=== PATIENT | male | born 1990 | race Caucasian/White ===

== ENCOUNTER 2018-10-25 15:28 | Emergency (ER) | payer SELFPAY | END 2018-10-25 15:44 | disposition left against medical advice (07) | LOC: ER 15:28 | DX: F41.9 Anxiety disorder, unspecified (principal); Z53.21 Procedure and treatment not carried out due to patient leaving prior to being seen by health care provider ==

== ENCOUNTER 2019-05-15 23:42 | Emergency (ER) | payer MEDICAID | END 2019-05-16 01:04 | disposition left against medical advice (07) | LOC: ER 23:42 | DX: F41.9 Anxiety disorder, unspecified (principal); Z53.21 Procedure and treatment not carried out due to patient leaving prior to being seen by health care provider ==

== ENCOUNTER 2021-02-05 07:35 | Emergency (ER) | payer MEDICAID, OTHER ==
[~2021-02-05] VITALS: Ht 165.1 cm; Wt 73.0 kg
[2021-02-05] MEDS ORDERED: LORAZEPAM 2MG/ML CPJ IV ONE (07:45)
[2021-02-05] MEDS ORDERED: SODIUM CHLORIDE 0.9% 1,000 ML IV ONE (08:30)
[2021-02-05] MEDS ORDERED: DEXT 5%/0.9% NACL 1,000 ML IV ONE (08:30)
[2021-02-05 09:11] LABS: BASOPHILS % 1.1 % (0.0-2.0); EOSINOPHILS % 0.3 % (0.0-5.0); HEMATOCRIT. 40.3 % (42.0-52.0); HEMOGLOBIN. 14.5 g/dL (14.0-18.0); MEAN CORPUSCULAR VOLUME 86.3 fL (80.0-94.0); MEAN PLATELET VOLUME 8.3 fl (7.4-10.4); MONOCYTES % 7.7 % (2.0-8.0); NEUTROPHILS % 76.9 % (40.0-76.0); PLATELET 239 x1000/uL (130-400); RED BLOOD CELL COUNT 4.67 mill/uL (4.7-6.1); RED CELL DISTRIBUTION WIDTH 14.2 % (11.6-14.6)
[2021-02-05 09:15] LABS: CHLORIDE 107 mEq/L (98-107)
[2021-02-05 11:30] VITALS: BP 131/78
== END 2021-02-05 11:30 | disposition home or self-care (01) ==
LOC: ER 07:42
DX: K70.10 Alcoholic hepatitis without ascites (principal); Y90.9 Presence of alcohol in blood, level not specified; F10.180 Alcohol abuse with alcohol-induced anxiety disorder; E86.0 Dehydration; T40.5X1A Poisoning by cocaine, accidental (unintentional), initial encounter; F14.129 Cocaine abuse with intoxication, unspecified; R07.89 Other chest pain; R03.0 Elevated blood-pressure reading, without diagnosis of hypertension; Y92.89 Other specified places as the place of occurrence of the external cause
CPT/HCPCS: 36415; 71045; 80053; 83735; 83880; 84443; 84484; 85025; 93005; 96361; 96374; 99285; J2060; J7030; J7042; Z7610

== ENCOUNTER 2021-02-07 00:13 | Emergency (ER) | payer MEDICAID, OTHER ==
[~2021-02-07] VITALS: Ht 165.1 cm; Wt 75.0 kg
[2021-02-07 05:09] VITALS: BP 128/93
== END 2021-02-07 05:11 | disposition home or self-care (01) ==
LOC: ER 00:13
DX: T51.0X1A Toxic effect of ethanol, accidental (unintentional), initial encounter (principal); R00.2 Palpitations; F10.10 Alcohol abuse, uncomplicated; Y90.9 Presence of alcohol in blood, level not specified; R03.0 Elevated blood-pressure reading, without diagnosis of hypertension; F41.9 Anxiety disorder, unspecified; Y92.89 Other specified places as the place of occurrence of the external cause
CPT/HCPCS: 93005; 99283

== ENCOUNTER 2022-05-13 07:44 | Emergency (ER) | payer MEDICAID, OTHER ==
[~2022-05-13] VITALS: Ht 165.1 cm; Wt 91.0 kg
[2022-05-13 07:48] VITALS: BP 136/84
[2022-05-13] MEDS ORDERED: ONDANSETRON 4MG ODT PO ONE (08:15)
[2022-05-13] MEDS ORDERED: FAMOTIDINE 20MG TABLET PO ONE (08:15)
[2022-05-13] MEDS ORDERED: MAGNESIUM/ALUMINUM HYDROXIDE/SIMETHICONE 30ML UDC PO ONE (08:15)
[2022-05-13] MEDS ORDERED: MAGNESIUM/ALUMINUM HYDROXIDE/SIMETHICONE 30ML UDC PO NR (08:45)
== END 2022-05-13 09:47 | disposition home or self-care (01) ==
LOC: ER 07:44
DX: R11.2 Nausea with vomiting, unspecified (principal); F41.9 Anxiety disorder, unspecified
CPT/HCPCS: 99284; Q0162

== ENCOUNTER 2022-09-01 20:46 | Emergency (ER) | payer OTHER ==
[~2022-09-01] VITALS: Ht 170.2 cm; Wt 80.6 kg
[2022-09-01 20:51] VITALS: BP 128/55
== END 2022-09-02 00:09 | disposition left against medical advice (07) ==
LOC: ER 20:46
DX: Z53.21 Procedure and treatment not carried out due to patient leaving prior to being seen by health care provider (principal)
CPT/HCPCS: 93005

== ENCOUNTER 2023-01-22 03:29 | Emergency (ER) | payer OTHER ==
[~2023-01-22] VITALS: Ht 165.1 cm; Wt 73.0 kg
[2023-01-22 05:13] LABS: HEMATOCRIT. 37.8 % (42.0-52.0); HEMOGLOBIN. 12.8 g/dL (14.0-18.0); MEAN CORPUSCULAR HEMOGLOBIN 33.8 pg (28.0-32.0); MEAN CORPUSCULAR VOLUME 99.6 fL (80.0-94.0); MEAN PLATELET VOLUME 8.1 fl (7.4-10.4); PLATELET 145 x1000/uL (130-400); RED BLOOD CELL COUNT 3.79 mill/uL (4.7-6.1); RED CELL DISTRIBUTION WIDTH 15.2 % (11.6-14.6)
[2023-01-22 05:20] LABS: CHLORIDE 104 mEq/L (98-107)
[2023-01-22 06:28] LABS: PLATELET ESTIMATE NORMAL
[2023-01-22] MEDS ORDERED: LORAZEPAM 2MG/ML CPJ IV ONE (09:45)
[2023-01-22] MEDS ORDERED: FOLIC ACID 1 MG, THIAMINE HCL 100 MG, MVI, ADULT NO.1 10 ML in DEXTROSE 5% WATER 1,000 ML IV ONE ×4 (09:45)
[2023-01-22 10:57] LABS: CLARITY URINE CLEAR (CLEAR); COLOR URINE ORANGE (YELLOW); KETONES URINE 1+ (NEGATIVE); PH URINE 7.5 (4.5-8.0); PROTEIN URINE TRACE (NEGATIVE)
[2023-01-22 10:58] LABS: LEUKOCYTE ESTERASE URINE NEGATIVE (NEGATIVE); NITRITE URINE POSITIVE (NEGATIVE); OCCULT BLOOD URINE NEGATIVE (NEGATIVE); UROBILINOGEN URINE >8.0 E.U./dL (0.2-1.0)
[2023-01-22 12:00] VITALS: BP 117/66
[2023-01-22] MEDS ORDERED: L10 MT (13:45)
== END 2023-01-22 14:00 | disposition home or self-care (01) ==
LOC: ER 03:29
DX: R42 Dizziness and giddiness (principal); F41.9 Anxiety disorder, unspecified
CPT/HCPCS: 36415; 71045; 80053; 81003; 82962; 85025; 96365; 96366; 96375; 99284; J2060; J3411; J3490; J7070

== ENCOUNTER 2023-02-19 11:15 | Emergency (ER) | payer OTHER ==
[~2023-02-19] VITALS: Ht 165.1 cm; Wt 77.0 kg
[~2023-02-19 11:15] MED LIST: L10 MT
[2023-02-19 11:20] VITALS: O2SAT 98
[2023-02-19] MEDS ORDERED: SODIUM CHLORIDE 0.9% 1,000 ML IV ONE (12:30)
[2023-02-19 12:43] LABS: *AMPHETAMINES SCREEN URINE PRESUMTIVE POSITIVE (NEGATIVE); *BARBITURATES SCREEN URINE NEGATIVE (NEGATIVE); *BENZODIAZEPINES SCREEN URINE PRESUMTIVE POSITIVE (NEGATIVE); *COCAINE SCREEN URINE PRESUMTIVE POSITIVE (NEGATIVE); CANNABINOID URINE SCREEN NEGATIVE (NEGATIVE); METHADONE URINE SCREEN NEGATIVE (NEGATIVE); OPIATES URINE SCREEN NEGATIVE (NEGATIVE); PHENCYCLIDINE URINE SCREEN NEGATIVE (NEGATIVE)
[2023-02-19 13:07] LABS: EOSINOPHILS % 1.4 % (0.0-5.0); HEMOGLOBIN. 11.4 g/dL (14.0-18.0); LYMPHOCYTES % 12.2 % (20.0-50.0); MEAN CORPUSCULAR HEMOGLOBIN 33.9 pg (28.0-32.0); MEAN CORPUSCULAR VOLUME 98.4 fL (80.0-94.0); MEAN PLATELET VOLUME 8.6 fl (7.4-10.4); NEUTROPHILS % 78.4 % (40.0-76.0); PLATELET 111 x1000/uL (130-400); RED BLOOD CELL COUNT 3.36 mill/uL (4.7-6.1); RED CELL DISTRIBUTION WIDTH 14.9 % (11.6-14.6)
[2023-02-19 13:14] LABS: CHLORIDE 107 mEq/L (98-107)
[2023-02-19 13:26] LABS: ETHANOL BLOOD 237 mg/dL (-10)
[2023-02-19 14:30] VITALS: BP 120/73; PULSE 95; RESP 16; TEMP 98.9
== END 2023-02-19 15:00 | disposition home or self-care (01) ==
LOC: ER 11:15
DX: R00.2 Palpitations (principal); E86.0 Dehydration; F41.9 Anxiety disorder, unspecified
CPT/HCPCS: 80053; 80305; 80320; 83690; 85025; 84484; 36415; 93005; 96360; 99284; J7030; G0480

== ENCOUNTER 2023-03-13 08:44 | Emergency (ER) | payer OTHER ==
[~2023-03-13] VITALS: Ht 165.1 cm; Wt 77.0 kg
[2023-03-13 08:50] VITALS: TEMP 99.5; O2SAT 100
[2023-03-13] MEDS ORDERED: CHLORDIAZEPOXIDE 25MG CAPSULE PO ONE (10:00)
[2023-03-13 10:17] LABS: HEMATOCRIT 37.7 % (42.0-52.0); HEMOGLOBIN 12.8 g/dL (14.0-18.0); MEAN CORPUSCULAR HEMOGLOBIN 32.9 pg (28.0-32.0); MEAN CORPUSCULAR VOLUME 96.6 fL (80.0-94.0); PLATELET 86 x1000/uL (130-400); RED BLOOD CELL COUNT 3.91 mill/uL (4.7-6.1); RED CELL DISTRIBUTION WIDTH 14.4 % (11.6-14.6)
[2023-03-13 10:28] LABS: CHLORIDE 105 mEq/L (98-107)
[2023-03-13 10:37] LABS: ETHANOL BLOOD < 10 mg/dL (-10)
[2023-03-13 12:20] VITALS: BP 128/53; PULSE 70; RESP 16
== END 2023-03-13 12:39 | disposition home or self-care (01) ==
LOC: ER 08:44
DX: F10.239 Alcohol dependence with withdrawal, unspecified (principal); F10.229 Alcohol dependence with intoxication, unspecified; Y90.0 Blood alcohol level of less than 20 mg/100 ml
CPT/HCPCS: 36415; 80053; 80320; 85027; 99283; G0480

== ENCOUNTER 2023-05-29 21:27 | Emergency (ER) | payer OTHER ==
[~2023-05-29] VITALS: Ht 165.1 cm; Wt 73.0 kg
[2023-05-29 21:32] VITALS: BP 147/79; PULSE 82; RESP 18; TEMP 97.6; O2SAT 99
== END 2023-05-29 21:50 | disposition left against medical advice (07) ==
LOC: ER 21:27
DX: Z53.21 Procedure and treatment not carried out due to patient leaving prior to being seen by health care provider (principal)
CPT/HCPCS: 99281